=== PATIENT | male | born 1995 | race Caucasian/White ===

== ENCOUNTER → 2016-08-16 | Outpatient (CLI) | payer OTHER | END | disposition home or self-care (01) | LOC: CT 10:34 | DX: R22.31 Localized swelling, mass and lump, right upper limb (principal) ==

== ENCOUNTER → 2017-09-21 | Outpatient (CLI) | payer OTHER | END | disposition home or self-care (01) | LOC: RAD 09:56 | DX: M54.6 Pain in thoracic spine (principal); M54.5 Low back pain; V89.2XXD Person injured in unspecified motor-vehicle accident, traffic, subsequent encounter; X58.XXXD Exposure to other specified factors, subsequent encounter ==

== ENCOUNTER 2023-04-08 20:09 | Emergency (ER) | payer OTHER ==
[~2023-04-08] VITALS: Ht 193 cm; Wt 101.2 kg
[2023-04-08] MEDS ORDERED: ELIQUIS5 M1 PO (20:19)
== END 2023-04-08 22:01 | disposition home or self-care (01) ==
LOC: ED 20:09
DX: S93.401A Sprain of unspecified ligament of right ankle, initial encounter (principal); X58.XXXA Exposure to other specified factors, initial encounter; Y93.89 Activity, other specified; Y92.009 Unspecified place in unspecified non-institutional (private) residence as the place of occurrence of the external cause; Y99.0 Civilian activity done for income or pay